=== PATIENT | female | born 1950 | race Caucasian/White ===

== ENCOUNTER 2024-04-01 06:04 | Outpatient (CLI) | payer MEDICARE | END 2024-04-01 23:59 | disposition home or self-care (01) | LOC: MRI02 06:04 | PROVIDERS: ATTEND Anesthesiology | DX: M47.26 Other spondylosis with radiculopathy, lumbar region (principal); M47.818 Spondylosis without myelopathy or radiculopathy, sacral and sacrococcygeal region; M43.18 Spondylolisthesis, sacral and sacrococcygeal region; M48.061 Spinal stenosis, lumbar region without neurogenic claudication; M48.08 Spinal stenosis, sacral and sacrococcygeal region; M43.16 Spondylolisthesis, lumbar region | CPT/HCPCS: 72148 ==